=== PATIENT | male | born 2000 | race Caucasian/White ===

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

== ENCOUNTER 2021-02-26 07:47 | Emergency (ER) | payer OTHER, MEDICAID ==
[~2021-02-26] VITALS: Ht 175.3 cm; Wt 88.5 kg
[~2021-02-26 07:47] MED LIST: NAPR-1704 PO
[2021-02-26 08:02] VITALS: BP 137/73
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
--- NOTE | 2021-02-26 09:31 | NUR ---
Patient being evaluated by DR LEMONS at TRIAGE ROOM.
[2021-02-26] MEDS ORDERED: NACL 0.9% 1,000 ML IV ONE (09:45)
[2021-02-26] MEDS ORDERED: ONDANSETRON 4 MG/2 ML VIAL IVP ONE (09:45)
[2021-02-26] MEDS ORDERED: MORPHINE SULFATE 4 MG/ML SYR IVP ONE (09:45)
--- NOTE | 2021-02-26 10:04 | NUR ---
Pt taken to x-ray
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
--- NOTE | 2021-02-26 10:45 | NUR ---
Blood Collected and sent to lab
--- NOTE | 2021-02-26 11:02 | NUR ---
Pt to CT via wheelchair
--- NOTE | 2021-02-26 11:13 | NUR ---
Pt back from CT
[2021-02-26 11:32] LABS: BASOPHILS % (AUTO) 0.2 % (0.0-2.0); EOSINOPHILS % (AUTO) 0.4 % (0.0-4.0); HEMATOCRIT 43.7 % (36-52); HEMOGLOBIN 14.9 g/dL (12.0-18.0); LYMPHOCYTES # (AUTO) 1.3 K/uL (2.0-11.5); LYMPHOCYTES % (AUTO) 16.3 % (20.5-51.1); MEAN CORPUSCULAR HEMOGLOBIN 30 pg (27-31); MEAN CORPUSCULAR HGB CONC 34 g/dL (33-37); MEAN CORPUSCULAR VOLUME 87.6 fL (80-94); MONOCYTES # (AUTO) 0.5 K/uL (0.8-1.0); MONOCYTES % (AUTO) 6.1 % (1.7-9.3); NEUTROPHILS # (AUTO) 6.3 K/uL (1.8-7.7); PLATELET COUNT (AUTO) 181 K/uL (140-450); RED BLOOD CELL COUNT(AUTO) 4.99 MIL/uL (4.20-6.10); RED CELL DISTRIBUTION WIDTH 12.9 % (11.6-13.7); WHITE BLOOD COUNT (AUTO) 8.2 K/uL (4.5-11.0)
[2021-02-26 11:43] LABS: ALBUMIN 4.2 g/dL (3.4-5.0); ANION GAP 10.6 (8-16); CARBON DIOXIDE 29.3 mmol/L (21-32); CREATININE 0.8 mg/dL (0.6-1.3); POTASSIUM 3.9 mmol/L (3.5-5.1); TOTAL BILIRUBIN 0.5 mg/dL (0.0-1.0)
[2021-02-26 11:58] LABS: PROTHROMBIN TIME 10.1 secs (10.8-13.4)
--- NOTE | 2021-02-26 12:00 | NUR ---
Said re-evaluating pt at chairside
[2021-02-26] MEDS ORDERED: ACET-2619 PO (12:04)
[2021-02-26] MEDS ORDERED: LID5T TP (12:04)
[2021-02-26] MEDS ORDERED: IBUP-2213 PO (12:04)
[2021-02-26] MEDS ORDERED: ACET-8386 PO (12:04)
[2021-02-26 12:15] VITALS: BP 120/81
--- NOTE | 2021-02-26 12:16 | NUR ---
Patient discharged with v/s stable. Written and verbal after care instructions given and explained. Patient alert, oriented and verbalized understanding of instructions. Ambulatory with steady gait. All questions addressed prior to discharge. ID band removed. Patient advised to follow up with PMD. Rx of Acetaminophen, Hydrocodone 5-325, Ibuprofen, and Lidocaine patch was given. Patient educated on indication of medication including possible reaction and side effects. Opportunity to ask questions provided and answered.
== END 2021-02-26 12:16 | disposition home or self-care (01) ==
LOC: MED 07:47
DX: S39.011A Strain of muscle, fascia and tendon of abdomen, initial encounter (principal); M79.10 Myalgia, unspecified site; V49.9XXA Car occupant (driver) (passenger) injured in unspecified traffic accident, initial encounter; Y93.89 Activity, other specified; Y92.89 Other specified places as the place of occurrence of the external cause; Y99.8 Other external cause status
CPT/HCPCS: 36415; 71260; 72128; 72131; 73130; 73590; 74177; 80053; 85025; 85610; 96361; 96374; 96375; 99285; J2270; J2405; J7030; Q9967

== ENCOUNTER 2022-07-24 09:50 | Emergency (ER) | payer MEDICAID, OTHER ==
[~2022-07-24] VITALS: Ht 175.3 cm; Wt 101.2 kg
[~2022-07-24 09:50] MED LIST changes: +ACET-2619 PO; +ACET-8905 PO; +IBUP-2213 PO; +LID5T TP
[2022-07-24 10:15] VITALS: BP 120/97
--- NOTE | 2022-07-24 10:53 | NUR ---
22/M WALKED IN C/O LOW BACK PAIN THAT GOT WORSE LAST NIGHT. PT REPORTS CHRONIC PAIN SINCE 05/2022. DENIES ANY RECENT INJURY OR FALL. AAO4, AMBULATORY, VITALS STABLE, ON ROOM AIR, NO ACUTE DISTRESS NOTED
[2022-07-24] MEDS ORDERED: KETOROLAC 60 MG/2 ML VIAL IM ONE (10:55)
[2022-07-24] MEDS ORDERED: NAPR-1704 PO (12:16)
[2022-07-24] MEDS ORDERED: TRAM-748 PO (12:16)
== END 2022-07-24 12:20 | disposition home or self-care (01) ==
LOC: MED 09:50
DX: S39.012A Strain of muscle, fascia and tendon of lower back, initial encounter (principal); Z79.899 Other long term (current) drug therapy; Z79.1 Long term (current) use of non-steroidal anti-inflammatories (NSAID); Z79.891 Long term (current) use of opiate analgesic; X58.XXXA Exposure to other specified factors, initial encounter; Y92.89 Other specified places as the place of occurrence of the external cause; Y93.89 Activity, other specified; Y99.8 Other external cause status
CPT/HCPCS: 72100; 96372; 99283; J1885